=== PATIENT | male | born 1995 | race African-American/Black ===

== ENCOUNTER 2021-04-03 09:26 | Emergency (ER) | payer OTHER ==
[~2021-04-03] VITALS: Ht 175.3 cm; Wt 86.2 kg
[2021-04-03 09:27] VITALS: BP 114/78
== END 2021-04-03 10:22 | disposition home or self-care (01) ==
LOC: ER 09:26
PROVIDERS: Emergency Medicine
DX: Z20.822 Contact with and (suspected) exposure to COVID-19 (principal)

== ENCOUNTER 2021-07-03 16:18 | Emergency (ER) | payer OTHER ==
[~2021-07-03] VITALS: Ht 175.3 cm; Wt 71.7 kg
[2021-07-03 16:24] VITALS: BP 121/79
== END 2021-07-03 16:56 | disposition home or self-care (01) ==
LOC: ER 16:18
PROVIDERS: Emergency Medicine
DX: J06.9 Acute upper respiratory infection, unspecified (principal); Z20.822 Contact with and (suspected) exposure to COVID-19